=== PATIENT | female | born 1970 | race Two or more races ===

== ENCOUNTER 2016-09-23 10:45 | Emergency (ER) | payer OTHER ==
[~2016-09-23] VITALS: Ht 160 cm; Wt 76.0 kg
[2016-09-23 10:52] VITALS: Ht 160 cm; Wt 76.0 kg
[2016-09-23] MEDS ORDERED: ACETAMINOPHEN 325 MG TAB PO ONE (12:00)
[2016-09-23 12:22] LABS: ADD SCAN DIFF NO
[2016-09-23 12:25] LABS: BASOPHILS % 0.2 % (0.0-2.0); HEMATOCRIT 36.2 % (37.0-47.0); HEMOGLOBIN 11.9 g/dl (12.0-16.0); LYMPHOCYTES # 1.3 10^3/ul (0.8-2.9); LYMPHOCYTES % 12.9 % (15.0-51.0); MEAN CORPUSCULAR HEMOGLOBIN 29.2 pg (29.0-33.0); MEAN CORPUSCULAR HGB CONC 32.9 g/dl (32.0-37.0); MEAN CORPUSCULAR VOLUME 88.7 fl (82.0-101.0); MEAN PLATELET VOLUME 10.1 fl (7.4-10.4); MONOCYTE # 0.9 10^3/ul (0.3-0.9); MONOCYTES % 8.8 % (0.0-11.0); NEUTROPHIL # 7.7 10^3/ul (1.6-7.5); NEUTROPHILS % 77.7 % (39.0-77.0); PLATELET COUNT 193 10^3/UL (140-415); RED BLOOD COUNT 4.08 10^6/ul (4.20-5.40); RED CELL DISTRIBUTION WIDTH 11.9 % (11.5-14.5); WHITE BLOOD COUNT 9.9 10^3/ul (4.8-10.8)
[2016-09-23 12:31] LABS: ADD UMIC YES; URINE BILIRUBIN (Dip) 1+ (NEGATIVE); URINE BLOOD (Dip) 2+ (NEGATIVE); URINE COLOR LT. YELLOW (YELLOW); URINE GLUCOSE (Dip) NEGATIVE (NEGATIVE); URINE KETONES (Dip) 3+ (NEGATIVE); URINE LEUKOCYTE ESTERASE (Dip) 2+ (NEGATIVE); URINE NITRITE (Dip) NEGATIVE (NEGATIVE); URINE TOTAL PROTEIN (Dip) 2+ (NEGATIVE); URINE UROBILINOGEN (Dip) 0.2 E.U./dL (0.1-1.0)
[2016-09-23 12:38] LABS: ALBUMIN 4.5 g/dl (3.3-4.9); POTASSIUM 3.5 mmol/L (3.5-5.1)
[2016-09-23] MEDS ORDERED: SOD CHLORIDE 0.9% 1,000 ML IV ONE (12:38)
[2016-09-23 12:40] LABS: CREATININE 0.67 mg/dl (0.44-1.00)
[2016-09-23 12:41] LABS: ALBUMIN/GLOBULIN RATIO 1.25; BILIRUBIN,INDIRECT 0.5 mg/dl (0-1.1); BILIRUBIN,TOTAL 0.5 mg/dl (0.2-1.3); TOTAL PROTEIN 8.1 g/dl (6.1-8.1)
[2016-09-23 12:42] LABS: CALCIUM 9.3 mg/dl (8.4-10.2)
[2016-09-23 12:44] LABS: ICTOTEST NEGATIVE (NEGATIVE)
[2016-09-23 12:45] LABS: BACTERIA,URINE MODERATE
[2016-09-23] MEDS ORDERED: CEFTRIAXONE 1 GM/50 ML (PMX) 50 ML IVPB ONE (13:00)
[2016-09-23] MEDS ORDERED: IBUP-1542 PO (13:26)
[2016-09-23] MEDS ORDERED: CIPR500T4 PO (13:26)
--- NOTE | 2016-09-23 13:31 | ERD ---
ER Documentation Chief Complaint Date/Time DATE: 09/23/16 TIME: 13:30 Chief Complaint dysuria x 3 days HPI This 45-year-old fell presents with dysuria and soup pain for the last 3 days. She has a fever triage. She denies any chest pain, vomiting, abdominal pain, vaginal bleeding, additional complaints. ROS All systems reviewed and are negative except as per history of present illness. Medications Home Meds Active Scripts Ciprofloxacin Hcl* (Ciprofloxacin Hcl*) 500 Mg Tablet, 500 MG PO BID for 7 Days , #14 TAB Prov:ELOISA SILVA MD 09/23/16 Ibuprofen* (Motrin*) 600 Mg Tab, 600 MG PO Q6H Y for PAIN, #15 TAB Prov:ELOISA SILVA MD 09/23/16 Allergies Allergies: Coded Allergies: No Known Allergy (Unverified , 09/23/16) PMhx/Soc Medical and Surgical Hx: pt denies Medical Hx, pt denies Surgical Hx Hx Alcohol Use: No Hx Substance Use: No Hx Tobacco Use: No Smoking Status: Never smoker Physical Exam Vitals Vital Signs Date Time Temp Pulse Resp B/P Pulse Ox O2 Delivery O2 Flow Rate FiO2 09/23/16 10:52 102.9 110 24 110/56 99 Physical Exam Const: [] Head: Atraumatic Eyes: Normal Conjunctiva ENT: Normal External Ears, Nose and Mouth. Neck: Full range of motion..~ No meningismus. Resp: Clear to auscultation bilaterally Cardio: Regular rate and rhythm, no murmurs Abd: Soft, non tender, non distended. Normal bowel sounds Skin: No petechiae or rashes Back: No midline or flank tenderness Ext: No cyanosis, or edema Neur: Awake and alert Psych: Normal Mood and Affect Result Diagram: 09/23/16 1203 09/23/16 1203 Results 24 hrs Laboratory Tests Test 09/23/16 12:03 White Blood Count 9.910^3/ul Red Blood Count 4.0810^6/ul Hemoglobin 11.9g/dl Hematocrit 36.2% Mean Corpuscular Volume 88.7fl Mean Corpuscular Hemoglobin 29.2pg Mean Corpuscular Hemoglobin Concent 32.9g/dl Red Cell Distribution Width 11.9% Platelet Count 62424^3/UL Mean Platelet Volume 10.1fl Neutrophils % 77.7% Lymphocytes % 12.9% Monocytes % 8.8% Eosinophils % 0.0% Basophils % 0.2% Nucleated Red Blood Cells % 0.0/100WBC Neutrophils # 7.710^3/ul Lymphocytes # 1.310^3/ul Monocytes # 0.910^3/ul Eosinophils # 0.010^3/ul Basophils # 0.010^3/ul Nucleated Red Blood Cells # 0.010^3/ul Urine Color LT. YELLOW Urine Clarity SLIGHTLY CLOUDY Urine pH 6.0 Urine Specific [place] 1.015 Urine Ketones 3+ Urine Nitrite NEGATIVE Urine Bilirubin 1+ Urine Ictotest NEGATIVE Urine Urobilinogen 0.2 E.U./dL Urine Leukocyte Esterase 2+ Urine Microscopic RBC 5-10/HPF Urine Microscopic WBC 10-25/HPF Urine Epithelial Cells FEW Urine Bacteria MODERATE Urine Hemoglobin 2+ Urine Glucose NEGATIVE% Urine Total Protein 2+ Sodium Level 140mmol/L Potassium Level 3.5mmol/L Chloride Level 98mmol/L Carbon Dioxide Level 26mmol/L Anion Gap 20 Blood Urea Nitrogen 10mg/dl Creatinine 0.67mg/dl Glucose Level 106mg/dl Calcium Level 9.3mg/dl Total Bilirubin 0.5mg/dl Direct Bilirubin 0.00mg/dl Indirect Bilirubin 0.5mg/dl Aspartate Amino Transf (AST/SGOT) 37IU/L Alanine Aminotransferase (ALT/SGPT) 48IU/L Alkaline Phosphatase 59IU/L Total Protein 8.1g/dl Albumin 4.5g/dl Globulin 3.60g/dl Albumin/Globulin Ratio 1.25 Current Medications Medications (Trade) Dose Ordered Sig/Coco Route PRN Reason Start Time Stop Time Status Last Admin Dose Admin Acetaminophen 650 mg 650 mg ONCE ONCE PO 09/23/16 12:00 09/23/16 12:01 DC 09/23/16 12:14 Ceftriaxone Sodium 50 ml @ 100 mls/hr ONCE ONCE IVPB 09/23/16 13:00 09/23/16 13:29 DC 09/23/16 12:47 Sodium Chloride (NS) 1,000 ml @ 0 mls/hr Q0M ONCE IV 09/23/16 12:38 09/23/16 12:40 DC 09/23/16 12:47 Procedures/MDM CBC shows a normal white blood cell count and hemoglobin 11.9. CMP is normal. Urine shows positive nitrites, leukocytes and hemoglobin. Urine was sent for culture. Patient says of urinary and fever without signs of acute abdomen, or street distress or sepsis. She was given Ceftin 1 g IV given the fever induration as well as 1 L normal saline IV. Patient for fever and observed for fever improved. Patient will be treated with Cipro and ibuprofen at home instructs for clear fluids. She should return for vomiting, bowel pain, new or worsening symptoms. Presents to suggest tumor an abscess, appendicitis, acute abdomen currently the patient should recheck for new worsening symptoms. The patient was stable with no new complaints during the ER course. Clinically, there is no current evidence to suggest meningitis, sepsis, acute abdomen, pneumonia, acute coronary syndrome, pulmonary embolism, or any other emergent condition appearing to require further evaluation or hospitalization. The patient should certainly return for any new or worsening symptoms per the aftercare instructions. They should otherwise follow-up with her primary care doctor for reevaluation this week. Departure Diagnosis: Primary Impression: Fever Fever type: unspecified Qualified Code: R50.9 - Fever, unspecified fever cause Additional Impression: UTI (urinary tract infection) Urinary tract infection type: acute cystitis Hematuria presence: without hematuria Qualified Code: N30.00 - Acute cystitis without hematuria Condition: Stable Patient Instructions: Understanding Urinary Tract Infections (UTIs), Fever Control (Adult) Additional Instructions: Drink plenty of fluids at home. Recheck for vomiting, abdominal pain, new or worsening symptoms. ELOISA SILVA MD September 23, 2016 13:31
[2016-09-23 14:02] VITALS: BP 115/63; PULSE 83; RESP 18; TEMP 98.9
== END 2016-09-23 14:00 | disposition home or self-care (01) ==
LOC: FTE 10:45
DX: R50.9 Fever, unspecified (principal); N30.00 Acute cystitis without hematuria
CPT/HCPCS: 36415; 80053; 81001; 85025; 87086; 96374; J0696; J7030; Z7502; Z7610; 81003